=== PATIENT | female | born 1980 | race Caucasian/White ===

== ENCOUNTER 2020-04-21 15:36 | Emergency (ER) | payer OTHER ==
[~2020-04-21] VITALS: Ht 157.5 cm; Wt 47.6 kg
[2020-04-21] MEDS ORDERED: NORFLEX100MG PO (16:23)
[2020-04-21] MEDS ORDERED: ZIPSOR25 MG PO (16:24)
== END 2020-04-21 19:52 | disposition home or self-care (01) ==
LOC: ER 15:36
DX: R53.1 Weakness (principal); Z03.818 Encounter for observation for suspected exposure to other biological agents ruled out

== ENCOUNTER 2020-08-01 17:44 | Emergency (ER) | payer OTHER ==
[~2020-08-01] VITALS: Ht 157.5 cm; Wt 47.6 kg
[~2020-08-01 17:44] MED LIST: NORFLEX100MG PO; ZIPSOR25 MG PO
== END 2020-08-01 20:44 | disposition home or self-care (01) ==
LOC: ER 17:44
DX: R07.89 Other chest pain (principal); M94.0 Chondrocostal junction syndrome [Tietze]; R51.9 Headache, unspecified

== ENCOUNTER 2020-09-20 13:55 | Emergency (ER) | payer OTHER ==
[~2020-09-20] VITALS: Ht 154.9 cm; Wt 48.1 kg
== END 2020-09-20 19:11 | disposition home or self-care (01) ==
LOC: ER 13:55
DX: R42 Dizziness and giddiness (principal); R53.81 Other malaise; E86.0 Dehydration

== ENCOUNTER 2020-10-02 20:16 | Emergency (ER) | payer OTHER ==
[~2020-10-02] VITALS: Ht 154.9 cm; Wt 46.3 kg
[2020-10-02] MEDS ORDERED: LEXAPRO5 MG PO (20:27)
[2020-10-02] MEDS ORDERED: PEPCID AC10 MG PO (20:27)
== END 2020-10-03 00:32 | disposition home or self-care (01) ==
LOC: ER 20:16
DX: K30 Functional dyspepsia (principal)

== ENCOUNTER → 2022-04-07 | Emergency (ER) | payer OTHER ==
[~2022-04-07] VITALS: Ht 157.5 cm; Wt 54.4 kg
[~2022-04-07] MED LIST changes: +CLONAZEPAM0.25 MG PO; +LEXAPRO5 MG PO; +PAXIL20 MG; +PEPCID AC10 MG PO; +TRINTELLIX10 MG PO
== END | disposition left against medical advice (07) ==
LOC: ER 00:31
DX: Z53.21 Procedure and treatment not carried out due to patient leaving prior to being seen by health care provider (principal)

== ENCOUNTER 2022-05-23 18:04 | Emergency (ER) | payer OTHER ==
[~2022-05-23] VITALS: Ht 162.6 cm; Wt 63.5 kg
[2022-05-23] MEDS ORDERED: SIMVASTATIN5 MG (18:42)
== END 2022-05-23 19:06 | disposition home or self-care (01) ==
LOC: ER 18:04
DX: R51.9 Headache, unspecified (principal)

== ENCOUNTER 2022-11-09 12:13 | Emergency (ER) | payer OTHER ==
[~2022-11-09] VITALS: Ht 157.5 cm; Wt 58.5 kg
[~2022-11-09 12:13] MED LIST changes: +SIMVASTATIN5 MG
== END 2022-11-09 16:47 | disposition home or self-care (01) ==
LOC: ER 12:13
DX: R00.2 Palpitations (principal)

== ENCOUNTER 2023-01-15 16:08 | Emergency (ER) | payer OTHER ==
[~2023-01-15] VITALS: Ht 157.5 cm; Wt 53.5 kg
[2023-01-15 18:46] LABS: URINE APPEARANCE Clear; URINE BILIRRUBIN Negative (NEGATIVE); URINE BLOOD Negative; URINE COLOR Yellow; URINE GLUCOSE Negative (NEGATIVE); URINE LEUKOCYTE Negative; URINE NITRATE Negative; URINE PROTEIN Negative (NEGATIVE); URINE UROBILINOGEN 0.2 E.U./dl
[2023-01-15 18:46] LABS: HEMATOCRIT 39.8 % (36.0-45.00); HEMOGLOBIN 13.3 g/dL (12.0-15.00); MEAN CELL VOLUME 91.3 fL (80.00-100.00); MEAN CORPUSCULAR HEMOGLOBIN 30.4 pg (27.00-32.0); MEAN CORPUSCULAR HGB CONC 33.3 g/dl (32.0-36.0); PLATELET COUNT 318 K/uL (150-450); RED BLOOD COUNT 4.36 M/uL (4.00-6.00); RED CELL DISTRIBUTION WIDTH 14.2 % (11.5-14.5)
[2023-01-15 18:54] LABS: URINE BACTERIA 694.2 uL (0.0-1933); URINE EPITHELIAL CELLS 9.8 uL (0.0-38.8); URINE RBC 3.7 uL (0.0-20.8); URINE WBC 9.2 uL (0.0-23.2)
[2023-01-15 19:21] LABS: ALBUMIN 4.1 gm/dL (3.4-5.0); BILIRUBIN TOTAL 0.89 mg/dL (0.3-1.2); CALCIUM 9.4 mg/dL (8.5-10.1); CREATININE SERUM 0.81 mg/dL (0.55-1.02); GFR 77.17; GLOBULINA 3.6 G/DL (2.4-3.5); POTASSIUM 3.83 mEq/L (3.5-5.1); TOTAL PROTEIN 7.7 gm/dL (6.4-8.2)
== END 2023-01-15 21:49 | disposition home or self-care (01) ==
LOC: ER 16:09
PROVIDERS: General Practice
DX: K52.9 Noninfective gastroenteritis and colitis, unspecified (principal); Z88.0 Allergy status to penicillin

== ENCOUNTER 2023-07-24 11:55 | Emergency (ER) | payer OTHER ==
[~2023-07-24] VITALS: Ht 154.9 cm; Wt 49.9 kg
[2023-07-24] MEDS ORDERED: CRESTOR10 MG PO (12:34)
[2023-07-24 14:34] LABS: URINE APPEARANCE Clear; URINE BACTERIA 1371.7 uL (0.0-1933); URINE BILIRRUBIN Negative (NEGATIVE); URINE BLOOD Negative; URINE COLOR Yellow; URINE EPITHELIAL CELLS 9.2 uL (0.0-38.8); URINE GLUCOSE Negative (NEGATIVE); URINE LEUKOCYTE Negative; URINE NITRATE Negative; URINE PROTEIN Negative (NEGATIVE); URINE UROBILINOGEN 0.2 E.U./dl; URINE WBC 14.6 uL (0.0-23.2)
[2023-07-24 14:36] LABS: URINE RBC 1.5 uL (0.0-20.8)
== END 2023-07-24 16:06 | disposition home or self-care (01) ==
LOC: ER 11:55
PROVIDERS: General Practice
DX: I10 Essential (primary) hypertension (principal); Z88.0 Allergy status to penicillin

== ENCOUNTER 2024-02-27 11:42 | Emergency (ER) | payer OTHER ==
[~2024-02-27] VITALS: Ht 157.5 cm; Wt 49.9 kg
[~2024-02-27 11:42] MED LIST changes: +CRESTOR10 MG PO
[2024-02-27 11:47] VITALS: BP 156/96; O2SAT 100
[2024-02-27] MEDS ORDERED: 0.9 % SODIUM CHLORIDE 1,000 ML IV STA (12:07)
[2024-02-27] MEDS ORDERED: FAMOTIDINE/PF 20 MG in 0.9 % SODIUM CHLORIDE 8 ML IV PUSH STA (12:08)
[2024-02-27] MEDS ORDERED: ONDANSETRON HCL 2 MG/ML VIAL IV STA (12:08)
[2024-02-27 12:46] LABS: HEMATOCRIT 42.3 % (36.0-45.00); HEMOGLOBIN 14.3 g/dL (12.0-15.00); MEAN CELL VOLUME 91.4 fL (80.00-100.00); MEAN CORPUSCULAR HGB CONC 33.9 g/dl (32.0-36.0); PLATELET COUNT 311 K/uL (150-450); RED BLOOD COUNT 4.63 M/uL (4.00-6.00); RED CELL DISTRIBUTION WIDTH 13.8 % (11.5-14.5)
[2024-02-27 13:09] LABS: URINE APPEARANCE Clear; URINE BILIRRUBIN Negative (NEGATIVE); URINE BLOOD Negative; URINE COLOR Yellow; URINE GLUCOSE Negative (NEGATIVE); URINE KETONE Negative (NEGATIVE); URINE LEUKOCYTE Negative; URINE NITRATE Negative; URINE PROTEIN Negative (NEGATIVE); URINE UROBILINOGEN 0.2 E.U./dl
[2024-02-27 13:12] LABS: URINE BACTERIA 448.4 uL (0.0-1933); URINE EPITHELIAL CELLS 26.8 uL (0.0-38.8); URINE WBC 6.1 uL (0.0-23.2)
[2024-02-27 13:28] LABS: CALCIUM 9.4 mg/dL (8.5-10.1); CREATININE SERUM 0.77 mg/dL (0.55-1.02); GFR 81.43; POTASSIUM 3.95 mEq/L (3.5-5.1)
[2024-02-27 13:28] LABS: URINE RBC 1.5 uL (0.0-20.8)
== END 2024-02-27 16:16 | disposition home or self-care (01) ==
LOC: ER 11:44
PROVIDERS: Emergency Medicine
DX: K52.89 Other specified noninfective gastroenteritis and colitis (principal); Z88.0 Allergy status to penicillin; Z20.822 Contact with and (suspected) exposure to COVID-19; E78.00 Pure hypercholesterolemia, unspecified

== ENCOUNTER 2025-03-04 10:10 | Emergency (ER) | payer OTHER ==
[~2025-03-04] VITALS: Ht 157.5 cm; Wt 48.1 kg
[2025-03-04] MEDS ORDERED: ONDANSETRON HCL 2 MG/ML VIAL IV STA (10:41)
[2025-03-04] MEDS ORDERED: FAMOTIDINE/PF 20 MG/2 ML VIAL IV STA (10:41)
[2025-03-04] MEDS ORDERED: DEXAMETHASONE SODIUM PHOSPHATE 4 MG/ML VIAL IM STA (10:41)
[2025-03-04] MEDS ORDERED: FAMOTIDINE/PF 20 MG/2 ML VIAL ONE (10:47)
[2025-03-04] MEDS ORDERED: ONDANSETRON HCL 2 MG/ML VIAL ONE (10:47)
[2025-03-04] MEDS ORDERED: DEXAMETHASONE SODIUM PHOSPHATE 4 MG/ML VIAL ONE (10:47)
[2025-03-04 11:47] LABS: BASO % 1.0 % (0.1-1.2); EOS # 0.13 (0.04-0.54); EOS % 1.9 % (0.7-7.0); LYMPH # 1.60 (1.18-3.74); LYMPH % 23.0 % (19.3-53.1); MEAN PLATELET VOLUME 10.90 fl (9.4-12.4); MONO # 0.58 (0.24-0.82); MONO % 8.3 % (4.7-12.5); NEUT # 4.56 (1.56-6.13); NEUT % 65.5 % (34.0-71.1); RED CELL DISTRIBUTION WIDTH 13.3 % (11.6-14.4)
[2025-03-04 12:10] LABS: URINE APPEARANCE Clear; URINE BILIRRUBIN Negative (NEGATIVE); URINE BLOOD Negative; URINE COLOR Yellow; URINE GLUCOSE Negative (NEGATIVE); URINE KETONE Negative (NEGATIVE); URINE LEUKOCYTE Negative; URINE NITRATE Negative; URINE PROTEIN Negative (NEGATIVE); URINE UROBILINOGEN 0.2 E.U./dl
[2025-03-04 12:12] LABS: ERYTHROCYTE SEDIMENTATION RATE 9 mm/hr (0-20)
[2025-03-04 12:14] LABS: URINE BACTERIA 1760.1 uL (0.0-1933); URINE EPITHELIAL CELLS 3.8 uL (0.0-38.8); URINE RBC 3.8 uL (0.0-20.8); URINE WBC 10.9 uL (0.0-23.2)
[2025-03-04 12:15] LABS: BUN CREA RATIO 14.0 (7.0-25.0); CREATININE SERUM 0.66 mg/dL (0.55-1.02); GFR 96.85; GLUCOSE FASTING 91.0 mg/dL (65-100); OSMOLALITY SERUM 278.0 MOSM/KG (275-295)
[2025-03-04 12:20] LABS: URINE CAST 0.00 uL (0.0-1.40)
[2025-03-04 13:03] LABS: INR 1.0
[2025-03-04] MEDS ORDERED: PEPCID AC20 MG PO (13:50)
[2025-03-04] MEDS ORDERED: OMEPRAZOLE MAGN20 MG PO (13:50)
== END 2025-03-04 14:11 | disposition home or self-care (01) ==
LOC: ER 10:11
PROVIDERS: General Practice
DX: K29.70 Gastritis, unspecified, without bleeding (principal); Z88.0 Allergy status to penicillin